=== PATIENT | male | born 1960 | race Caucasian/White ===

== ENCOUNTER 2018-05-23 20:02 | Inpatient (IN) | payer OTHER ==
[~2018-05-23] VITALS: Ht 175.3 cm; Wt 89.1 kg
[~2018-05-23 20:02] MED LIST: ALBU6.7H IH; ASPI-621 PO; CARV3.1212 PO; IBUP-1623 PO; LISI5TAB7 PO; OXYC-307 PO; SOMA
[2018-05-23 20:46] LABS: MEAN CORPUSCULAR HEMOGLOBIN 31.5 pg (27.5-34.5); MEAN CORPUSCULAR HGB CONC 34.4 g/dL (33.2-36.2); MEAN CORPUSCULAR VOLUME 91.4 fL (81-97); MEAN PLATELET VOLUME 8.4 fL (7.4-10.4); PLATELET COUNT 305 x10^3/uL (130-400); RED BLOOD COUNT 4.84 x10^6/uL (4.38-5.82); RED CELL DISTRIBUTION WIDTH 13.1 % (9.4-14.8)
[2018-05-23 20:58] LABS: ALBUMIN 3.8 g/dL (3.4-5.0); ANION GAP 10 mmol/L (5-15); CALCIUM 9.2 mg/dL (8.5-10.1); CHLORIDE 108 mmol/L (98-107); CREATININE 1.22 mg/dL (0.7-1.3)
[2018-05-23] MEDS ORDERED: VANCOMYCIN 1,500 MG in SODIUM CHLORIDE 0.9% 250 ML IV ONE (21:10)
[2018-05-23 21:12] LABS: BASOPHILS # (AUTO) 0.03 x10^3/uL (0-0.1); BASOPHILS % (AUTO) 0 % (0-1); EOSINOPHILS % (AUTO) 0 % (1-7); LYMPHOCYTES % (AUTO) 4 % (22-44); MD SCAN; MONOCYTES # (AUTO) 1.67 x10^3/uL (0.2-0.8); MONOCYTES % (AUTO) 7 % (2-9); NEUTROPHILS # (AUTO) 20.71 x10^3/uL (1.8-6.8); NEUTROPHILS % (AUTO) 89 % (42-75)
[2018-05-23] MEDS ORDERED: VANCOMYCIN PER PHARMACY MC PRN ×2 (21:30→23:30)
[2018-05-23] MEDS ORDERED: MORPHINE SULFATE 4 MG/ML, 1ML ONE ×2 (21:48→22:25)
[2018-05-23] MEDS ORDERED: OMNIPAQUE 350 MG/ML, 150 ML BOTTLE ONE (21:50)
[2018-05-23] MEDS: MORPHINE SULFATE 4 MG/ML, 1ML IVPush PRN ×2 (21:51→22:26)
[2018-05-23] MEDS ORDERED: SODIUM CHLORIDE 0.9% 1,000ML IVBOLUS ONE (22:00)
[2018-05-23] MEDS ORDERED: PIPERACILLIN/TAZO/PMX 3.375GM 50 ML IV ONE (22:30)
[2018-05-23 23:20] LABS: HCT (SEDRATE) 44.3 % (39.2-51.8)
[2018-05-23 23:28] VITALS: BP 175/107
[2018-05-23 23:30] VITALS: BP 175/107
[2018-05-23] MEDS ORDERED: ZOLPIDEM 5MG TABLET PO PRN (23:30)
[2018-05-23] MEDS ORDERED: ONDANSETRON 2MG/ML, 2ML IVPush PRN (23:30)
[2018-05-23] MEDS ORDERED: POLYETHYLENE GLYCOL 17 GM PACKET PO PRN (23:30)
[2018-05-23] MEDS ORDERED: PROMETHAZINE 25 MG/ML, 1ML IM PRN (23:30)
[2018-05-23] MEDS ORDERED: ONDANSETRON ODT 4 MG PO PRN (23:30)
[2018-05-23] MEDS ORDERED: PHARMACOKINETIC MONITORING MC PRN (23:45)
[2018-05-23] MEDS ORDERED: PHARMACOKINETIC CONSULTATION MC ONE (23:45)
[2018-05-23] MEDS: hydrALAzine 20 MG/ML, 1ML IVPush PRN (23:46)
[2018-05-24] VITALS: BP 175/107
[2018-05-24] MEDS: AMPICILLIN/SULBACTAM 3 GM in SODIUM CHLORIDE 0.9% 100 ML IV SCH ×5 (00:09→23:47)
[2018-05-24] MEDS: SODIUM CHLORIDE 0.9% 1,000 ML IV SCH ×2 (00:09→08:28)
[2018-05-24] MEDS: ENOXAPARIN 40 MG/0.4 ML SQ SCH ×2 (00:15→23:48)
[2018-05-24] MEDS: KETOROLAC 30 MG/1 ML IV PRN ×4 (00:40→23:48)
[2018-05-24 00:49] VITALS: BP 168/94
[2018-05-24 01:33] VITALS: BP 165/90
[2018-05-24 04:43] LABS: MEAN CORPUSCULAR HEMOGLOBIN 31.8 pg (27.5-34.5); MEAN CORPUSCULAR HGB CONC 34.5 g/dL (33.2-36.2); MEAN CORPUSCULAR VOLUME 92.2 fL (81-97); MEAN PLATELET VOLUME 8.4 fL (7.4-10.4); PLATELET COUNT 274 x10^3/uL (130-400); RED BLOOD COUNT 4.46 x10^6/uL (4.38-5.82)
[2018-05-24 04:47] LABS: ANION GAP 8 mmol/L (5-15); CALCIUM 8.7 mg/dL (8.5-10.1); CHLORIDE 108 mmol/L (98-107)
[2018-05-24 04:49] LABS: CREATININE 0.99 mg/dL (0.7-1.3)
[2018-05-24] MEDS: morphine SULFATE 10 MG/ML, 1ML IVPush PRN ×3 (05:13→22:09)
[2018-05-24 06:02] LABS: BASOPHILS # (AUTO) 0.04 x10^3/uL (0-0.1); BASOPHILS % (AUTO) 0 % (0-1); EOSINOPHILS # (AUTO) 0.26 x10^3/uL (0-0.4); EOSINOPHILS % (AUTO) 1 % (1-7); LYMPHOCYTES # (AUTO) 1.34 x10^3/uL (1-3.4); LYMPHOCYTES % (AUTO) 6 % (22-44); MD SCAN; MONOCYTES # (AUTO) 2.27 x10^3/uL (0.2-0.8); MONOCYTES % (AUTO) 10 % (2-9); NEUTROPHILS # (AUTO) 18.35 x10^3/uL (1.8-6.8); NEUTROPHILS % (AUTO) 82 % (42-75)
[2018-05-24 09:59] VITALS: BP 158/82
[2018-05-24] MEDS: VANCOMYCIN 1,500 MG in SODIUM CHLORIDE 0.9% 250 ML IV SCH (12:13)
[2018-05-24 14:50] VITALS: BP 168/93
[2018-05-24] MEDS ORDERED: POTASSIUM PHOSPHATE 44 MEQ in SODIUM CHLORIDE 0.9% 500 ML IV ONE (18:00)
[2018-05-24 19:57] VITALS: BP 146/72
[2018-05-25 00:06] VITALS: BP 136/85
[2018-05-25] MEDS: VANCOMYCIN 1,500 MG in SODIUM CHLORIDE 0.9% 250 ML IV SCH ×2 (00:30→12:44)
[2018-05-25 05:21] LABS: MEAN CORPUSCULAR HEMOGLOBIN 31.8 pg (27.5-34.5); MEAN CORPUSCULAR HGB CONC 34.6 g/dL (33.2-36.2); MEAN CORPUSCULAR VOLUME 91.9 fL (81-97); MEAN PLATELET VOLUME 8.3 fL (7.4-10.4); PLATELET COUNT 286 x10^3/uL (130-400); RED BLOOD COUNT 4.38 x10^6/uL (4.38-5.82); RED CELL DISTRIBUTION WIDTH 13.1 % (9.4-14.8)
[2018-05-25 05:24] LABS: ANION GAP 10 mmol/L (5-15); CALCIUM 8.5 mg/dL (8.5-10.1); CHLORIDE 105 mmol/L (98-107); CREATININE 1.03 mg/dL (0.7-1.3)
[2018-05-25] MEDS: SODIUM CHLORIDE 0.9% 1,000 ML IV SCH (05:52)
[2018-05-25] MEDS: AMPICILLIN/SULBACTAM 3 GM in SODIUM CHLORIDE 0.9% 100 ML IV SCH ×3 (05:52→18:26)
[2018-05-25 05:55] LABS: BASOPHILS # (AUTO) 0.04 x10^3/uL (0-0.1); BASOPHILS % (AUTO) 0 % (0-1); EOSINOPHILS % (AUTO) 1 % (1-7); LYMPHOCYTES # (AUTO) 1.65 x10^3/uL (1-3.4); LYMPHOCYTES % (AUTO) 10 % (22-44); MD SCAN; MONOCYTES # (AUTO) 1.76 x10^3/uL (0.2-0.8); MONOCYTES % (AUTO) 10 % (2-9); NEUTROPHILS # (AUTO) 13.42 x10^3/uL (1.8-6.8); NEUTROPHILS % (AUTO) 79 % (42-75)
[2018-05-25] MEDS ORDERED: GADOBUTROL 10 MMOL/10 ML PFS ONE (06:51)
[2018-05-25 08:39] VITALS: BP 163/99
[2018-05-25] MEDS: KETOROLAC 30 MG/1 ML IV PRN ×2 (09:07→14:53)
[2018-05-25 12:40] VITALS: BP 144/87
[2018-05-25] MEDS: IBUPROFEN 200 MG TABLET PO PRN (12:49)
[2018-05-25 14:42] VITALS: BP 146/93
[2018-05-25] MEDS: ACETAMINOPHEN 500 MG TABLET PO PRN (18:26)
[2018-05-25 19:32] VITALS: BP 148/79
[2018-05-25] MEDS: MELATONIN 5 MG TABLET PO SCH (21:59)
[2018-05-25] MEDS: GABAPENTIN 300 MG CAPSULE PO SCH (21:59)
[2018-05-26] VITALS (9 sets, daily range): BP systolic 126–192; BP diastolic 68–99
[2018-05-26] MEDS: ENOXAPARIN 40 MG/0.4 ML SQ SCH (00:07)
[2018-05-26] MEDS: AMPICILLIN/SULBACTAM 3 GM in SODIUM CHLORIDE 0.9% 100 ML IV SCH ×4 (00:07→17:37)
[2018-05-26] MEDS: MELATONIN 5 MG TABLET PO SCH ×2 (00:08→20:12)
[2018-05-26] MEDS: METOPROLOL SUCCINATE 25 MG TAB.ER.24H PO SCH (05:27)
[2018-05-26] MEDS: KETOROLAC 30 MG/1 ML IV PRN ×3 (05:33→21:50)
[2018-05-26 05:50] LABS: MEAN CORPUSCULAR HEMOGLOBIN 31.5 pg (27.5-34.5); MEAN CORPUSCULAR HGB CONC 34.3 g/dL (33.2-36.2); MEAN CORPUSCULAR VOLUME 91.6 fL (81-97); MEAN PLATELET VOLUME 8.1 fL (7.4-10.4); PLATELET COUNT 306 x10^3/uL (130-400); RED BLOOD COUNT 4.22 x10^6/uL (4.38-5.82); RED CELL DISTRIBUTION WIDTH 12.9 % (9.4-14.8)
[2018-05-26 05:56] LABS: CHLORIDE 107 mmol/L (98-107)
[2018-05-26 05:57] LABS: ANION GAP 8 mmol/L (5-15); CALCIUM 8.3 mg/dL (8.5-10.1)
[2018-05-26 05:59] LABS: CREATININE 0.84 mg/dL (0.7-1.3)
[2018-05-26 06:07] LABS: BASOPHILS # (AUTO) 0.03 x10^3/uL (0-0.1); BASOPHILS % (AUTO) 0 % (0-1); EOSINOPHILS # (AUTO) 0.26 x10^3/uL (0-0.4); EOSINOPHILS % (AUTO) 2 % (1-7); LYMPHOCYTES # (AUTO) 0.95 x10^3/uL (1-3.4); LYMPHOCYTES % (AUTO) 8 % (22-44); MD SCAN; MONOCYTES # (AUTO) 1.28 x10^3/uL (0.2-0.8); MONOCYTES % (AUTO) 11 % (2-9); NEUTROPHILS # (AUTO) 8.72 x10^3/uL (1.8-6.8); NEUTROPHILS % (AUTO) 78 % (42-75)
[2018-05-26] MEDS: IBUPROFEN 200 MG TABLET PO PRN (09:18)
[2018-05-26] MEDS: HYDROcodone/APAP 5/325 TABLET PO PRN (20:12)
[2018-05-26] MEDS: GABAPENTIN 300 MG CAPSULE PO SCH (20:12)
[2018-05-26] MEDS: hydrALAzine 20 MG/ML, 1ML IVPush PRN (20:20)
[2018-05-26] MEDS ORDERED: hydrALAzine 20 MG/ML, 1ML IV ONE (22:00)
[2018-05-26] MEDS ORDERED: hydrALAzine 20 MG/ML, 1ML IVPush PRN (23:30)
[2018-05-27] MEDS: AMPICILLIN/SULBACTAM 3 GM in SODIUM CHLORIDE 0.9% 100 ML IV SCH ×4 (00:35→18:28)
[2018-05-27] MEDS: ENOXAPARIN 40 MG/0.4 ML SQ SCH (00:35)
[2018-05-27 00:37] VITALS: BP 131/68
[2018-05-27 05:31] VITALS: BP 175/89
[2018-05-27] MEDS: KETOROLAC 30 MG/1 ML IV PRN ×3 (05:33→18:33)
[2018-05-27] MEDS: METOPROLOL SUCCINATE 25 MG TAB.ER.24H PO SCH (05:33)
[2018-05-27 06:12] VITALS: BP 159/89
[2018-05-27 06:52] VITALS: BP 138/77
[2018-05-27] MEDS: ACETAMINOPHEN 500 MG TABLET PO PRN (09:12)
[2018-05-27 19:05] VITALS: BP 187/93
[2018-05-27] MEDS: MELATONIN 5 MG TABLET PO SCH (21:20)
[2018-05-27] MEDS: GABAPENTIN 300 MG CAPSULE PO SCH (21:20)
[2018-05-28] VITALS (7 sets, daily range): BP systolic 160–176; BP diastolic 66–100
[2018-05-28] MEDS: AMPICILLIN/SULBACTAM 3 GM in SODIUM CHLORIDE 0.9% 100 ML IV SCH ×4 (00:10→18:40)
[2018-05-28] MEDS: ENOXAPARIN 40 MG/0.4 ML SQ SCH (00:10)
[2018-05-28] MEDS: KETOROLAC 30 MG/1 ML IV PRN ×4 (01:11→21:37)
[2018-05-28] MEDS: METOPROLOL SUCCINATE 25 MG TAB.ER.24H PO SCH (05:45)
[2018-05-28 06:32] LABS: HCT (SEDRATE) 40.8 % (39.2-51.8)
[2018-05-28] MEDS ORDERED: AMLODIPINE 5 MG TABLET PO ONE (12:30)
[2018-05-28] MEDS: HYDROcodone/APAP 5/325 TABLET PO PRN (13:14)
[2018-05-28] MEDS: MELATONIN 5 MG TABLET PO SCH (21:36)
[2018-05-28] MEDS: GABAPENTIN 300 MG CAPSULE PO SCH (21:36)
[2018-05-29] MEDS: ENOXAPARIN 40 MG/0.4 ML SQ SCH (00:13)
[2018-05-29] MEDS: AMPICILLIN/SULBACTAM 3 GM in SODIUM CHLORIDE 0.9% 100 ML IV SCH ×4 (00:13→18:12)
[2018-05-29 02:00] VITALS: BP 138/81
[2018-05-29] MEDS: METOPROLOL SUCCINATE 25 MG TAB.ER.24H PO SCH (06:13)
[2018-05-29] MEDS: HYDROcodone/APAP 5/325 TABLET PO PRN ×3 (06:13→22:26)
[2018-05-29 07:28] VITALS: BP 143/80
[2018-05-29] MEDS: IBUPROFEN 200 MG TABLET PO PRN ×2 (09:05→20:25)
[2018-05-29] MEDS: LINEZOLID 600 MG TABLET PO SCH ×2 (12:13→20:25)
[2018-05-29] MEDS: ACETAMINOPHEN 500 MG TABLET PO PRN (12:14)
[2018-05-29 12:19] LABS: BASOPHILS # (AUTO) 0.03 x10^3/uL (0-0.1); BASOPHILS % (AUTO) 0 % (0-1); EOSINOPHILS # (AUTO) 0.24 x10^3/uL (0-0.4); EOSINOPHILS % (AUTO) 3 % (1-7); LYMPHOCYTES % (AUTO) 13 % (22-44); MD NO; MEAN CORPUSCULAR HEMOGLOBIN 31.4 pg (27.5-34.5); MEAN CORPUSCULAR HGB CONC 34.2 g/dL (33.2-36.2); MEAN CORPUSCULAR VOLUME 91.8 fL (81-97); MEAN PLATELET VOLUME 7.1 fL (7.4-10.4); MONOCYTES # (AUTO) 1.29 x10^3/uL (0.2-0.8); MONOCYTES % (AUTO) 14 % (2-9); NEUTROPHILS # (AUTO) 6.22 x10^3/uL (1.8-6.8); NEUTROPHILS % (AUTO) 69 % (42-75); PLATELET COUNT 402 x10^3/uL (130-400); RED BLOOD COUNT 4.67 x10^6/uL (4.38-5.82); RED CELL DISTRIBUTION WIDTH 12.5 % (9.4-14.8)
[2018-05-29 12:30] LABS: ANION GAP 8 mmol/L (5-15); CALCIUM 9.3 mg/dL (8.5-10.1); CHLORIDE 104 mmol/L (98-107); CREATININE 1.11 mg/dL (0.7-1.3)
[2018-05-29 12:31] LABS: ALANINE AMINOTRANSFERASE 92 U/L (12-78); ALBUMIN 2.6 g/dL (3.4-5.0)
[2018-05-29 12:32] LABS: ALKALINE PHOSPHATASE 108 U/L (45-117); BILIRUBIN,TOTAL 0.6 mg/dL (0.2-1.0); TOTAL PROTEIN 8.1 g/dL (6.4-8.2)
[2018-05-29 12:35] VITALS: BP 141/89
[2018-05-29] MEDS ORDERED: AMLODIPINE 5 MG TABLET PO ONE (14:00)
[2018-05-29 20:13] VITALS: BP 156/101
[2018-05-29] MEDS: MELATONIN 5 MG TABLET PO SCH (20:25)
[2018-05-29] MEDS: GABAPENTIN 300 MG CAPSULE PO SCH (20:25)
[2018-05-29 21:55] VITALS: BP 166/76
[2018-05-30] MEDS: ENOXAPARIN 40 MG/0.4 ML SQ SCH (01:25)
[2018-05-30] MEDS: AMPICILLIN/SULBACTAM 3 GM in SODIUM CHLORIDE 0.9% 100 ML IV SCH ×3 (01:25→12:45)
[2018-05-30 03:06] VITALS: BP 128/80
[2018-05-30] MEDS: METOPROLOL SUCCINATE 25 MG TAB.ER.24H PO SCH (05:17)
[2018-05-30] MEDS: LINEZOLID 600 MG TABLET PO SCH (08:09)
[2018-05-30 08:53] VITALS: BP 126/78
[2018-05-30] MEDS: HYDROcodone/APAP 5/325 TABLET PO PRN (12:45)
[2018-05-30 13:30] VITALS: BP 143/94
[2018-05-30] MEDS ORDERED: GABA300C10 PO (14:16)
[2018-05-30] MEDS ORDERED: IBUP-1484 PO (14:16)
[2018-05-30] MEDS ORDERED: ONDA4TAB13 PO (14:16)
[2018-05-30] MEDS ORDERED: ACET500T71 PO (14:16)
[2018-05-30] MEDS ORDERED: LINE600T33 PO (14:16)
[2018-05-30] MEDS ORDERED: METO25TA91 PO (14:18)
[2018-05-30] MEDS ORDERED: AMLO5TAB7 PO (14:18)
== END 2018-05-30 16:39 | disposition home or self-care (01) | DRG 872 ==
LOC: ED 22:04 → EDIP 22:44 → 3NE 23:23 → 4WST 05-24 07:04
PROVIDERS: ADMIT Hospitalist; ATTEND Hospitalist
DX: A41.9 Sepsis, unspecified organism (principal); T79.A0XA Compartment syndrome, unspecified, initial encounter; L03.116 Cellulitis of left lower limb; J45.909 Unspecified asthma, uncomplicated; B95.61 Methicillin susceptible Staphylococcus aureus infection as the cause of diseases classified elsewhere; M19.079 Primary osteoarthritis, unspecified ankle and foot; Y82.8 Other medical devices associated with adverse incidents; I10 Essential (primary) hypertension; R09.02 Hypoxemia; Z86.14 Personal history of Methicillin resistant Staphylococcus aureus infection; Z87.891 Personal history of nicotine dependence; Y92.89 Other specified places as the place of occurrence of the external cause; Z87.81 Personal history of (healed) traumatic fracture; Z98.1 Arthrodesis status
CPT/HCPCS: 36415; 36600; 71046; 80048; 80053; 82040; 82803; 83605; 83735; 84100; 84145; 85025; 85651; 86140; 87040; 87081; 93922; 96365; 96375; 96376; A9585; G0378; J0295; J1650; J1885; J3370; Q9967; J0360; J2270; J7030; J7040; J7050